=== PATIENT | male | born 1980 ===

== ENCOUNTER 2017-03-06 00:52 | Emergency (ER) | payer SELFPAY ==
[~2017-03-06] VITALS: Ht 203.2 cm; Wt 91.9 kg
[2017-03-06 02:13] VITALS: Ht 203.2 cm; Wt 91.9 kg
[2017-03-06] MEDS ORDERED: KETOROLAC 30 MG INJ IV STA (03:04)
[2017-03-06] MEDS ORDERED: ONDANSETRON 4 MG INJ IV STA (03:21)
[2017-03-06] MEDS ORDERED: morphine 4 MG/ML VIAL IV STA (03:21)
[2017-03-06] MEDS ORDERED: METHYLPREDNISOLONE 125 MG INJ IV ONE (03:30)
[2017-03-06] MEDS ORDERED: CLINDAMYCIN 900 MG/D5W (PMX) 50 ML IVPB SCH (03:30)
--- NOTE | 2017-03-06 03:34 | ERD ---
ER Documentation Chief Complaint Chief Complaint R jaw pain going to the R ear x 2 days,hard for him to swallow,not Neuro HPI 36-year-old male presents to emergency department for complaints of right sided throat pain radiating to the right jaw and right ear area that has been going on for 2 days, is hard for him to swallow because of the pain describes the pain as throbbing pain, 8/10 scale, as was upon swallowing. Patient was seen at another hospital, was given steroids through to help with some of the symptoms, after the medicine wore off, patient started to have the symptoms again. Patient does not have any stridor. Patient does not have any fever chills ROS All systems reviewed and are negative except as per history of present illness. Medications Home Meds Active Scripts Ibuprofen* (Motrin*) 600 Mg Tab, 600 MG PO Q6H Y for PAIN AND OR ELEVATED TEMP, #30 TAB Prov:MASSIMO MAI NP 03/06/17 Prednisone* (Prednisone*) 50 Mg Tablet, 50 MG PO DAILY for 5 Days, TAB Prov:MASSIMO MAI NP 03/06/17 Acetaminophen-Codeine* (Tylenol-Codeine* Liq) [id number] Elix, 10 ML PO Q6H Y for PAIN, #8 OZ Prov:MASSIMO MAI NP 03/06/17 Clindamycin Hcl* (Clindamycin Hcl*) 300 Mg Capsule, 300 MG PO TID for 10 Days, CAP Prov:MASSIMO MAI NP 03/06/17 Reported Medications [none] Unknown Strength No Conflict Check 03/06/17 Allergies Allergies: Coded Allergies: No Known Allergy (Unverified , 03/06/17) PMhx/Soc Medical and Surgical Hx: pt denies Medical Hx, pt denies Surgical Hx FmHx Family History: No coronary disease, No diabetes, No other Physical Exam Vitals Vital Signs Date Time Temp Pulse Resp B/P Pulse Ox O2 Delivery O2 Flow Rate FiO2 03/06/17 02:13 99.2 72 18 154/98 100 Physical Exam GENERAL: The patient is well developed and appropriate for usual state of health, in no apparent distress. HEENT: Atraumatic. Ears: Normal tympanic membrane, no erythema or bulging. No ear canal swelling. No ear discharge. Nose: normal nasal turbinates, no erythema or swelling. Normal nasal discharge. Throat: oropharynx erythematous with the right tonsillar swelling, mild tenderness on palpation of the right peritonsillar area, mild swelling noted, no obstruction noted. No lymphadenopathy. CHEST: Clear to auscultation bilaterally. There are no rales, wheezes or rhonchi. HEART: Regular rate and rhythm. No murmurs, clicks, rubs or gallops. No S3 or S4. ABDOMEN: Soft, nontender and nondistended. Good bowel sounds. No rebound or guarding. No gross peritonitis. No gross organomegaly or masses. No Rivera sign or McBurney point tenderness. BACK: No midline or flank tenderness. EXTREMITIES: Equal pulses bilaterally. There is no peripheral clubbing, cyanosis or edema. No focal swelling or erythema. Full range of motion. Grossly neurovascularly intact. NEURO: Alert and oriented. Cranial nerves 2-12 intact. Motor strength in all 4 extremities with 5/5 strength. Sensation grossly intact. Normal speech and gait. SKIN: There is no apparent rash or petechia. The skin is warm and dry. HEMATOLOGIC AND LYMPHATIC: There is no evidence of excessive bruising or lymphedema. No gross cervical, axillary, or inguinal lymphadenopathy. Results 24 hrs Current Medications Medications (Trade) Dose Ordered Sig/Ama Route PRN Reason Start Time Stop Time Status Last Admin Dose Admin Clindamycin HCl/ Dextrose (Cleocin 900 Mg/ D5W (Pmx)) 50 ml @ 50 mls/hr ONCE IVPB 03/06/17 03:30 03/06/17 04:29 DC 03/06/17 03:28 Ketorolac Tromethamine (Toradol) 30 mg ONCE STAT IV 03/06/17 03:04 03/06/17 03:05 DC Methylprednisolone Sodium Succinate (Solu-Medrol) 125 mg ONCE ONCE IV 03/06/17 03:30 03/06/17 03:31 DC 03/06/17 03:27 Morphine Sulfate (morphine) 4 mg ONCE STAT IV 03/06/17 03:21 03/06/17 03:22 DC 03/06/17 03:31 Ondansetron HCl (Zofran Inj) 4 mg ONCE STAT IV 03/06/17 03:21 03/06/17 03:22 DC 03/06/17 03:31 IV clindamycin, pain medications morphine Zofran Solu-Medrol was given here in the emergency department, tolerated medication well. Procedures/MDM Medical decision making: Patient symptoms is likely consistent with acute bacterial pharyngitis, most likely strep throat can be early peritonsillar abscess. Low suspicion for peritonsillar abscess, no symptoms of epiglottitis, laryngitis. No oral airway obstruction noted. No symptoms of sepsis at this time. Patient appears well and is hemodynamically stable. Patient was given for clindamycin Tylenol with codeine, and prednisone is advised to follow-up with primary care doctor in 1-2 days for reevaluation of symptoms. Patient is advised to do salt water gargles. Patient is advised to return to emergency department for worsening symptoms. Disposition: Home. Stable. Disclaimer: Inadvertent spelling and grammatical errors are likely due to EHR/ dictation software use and do not reflect on the overall quality of patient care. Also, please note that the electronic time recorded on this note does not necessarily reflect the actual time of the patient encounter. Departure Diagnosis: Primary Impression: Acute bacterial pharyngitis Condition: Stable Patient Instructions: Pharyngitis, Strep (Presumed) Additional Instructions: Patient was given for clindamycin Tylenol with codeine, and prednisone is advised to follow-up with primary care doctor in 1-2 days for reevaluation of symptoms. Patient is advised to do salt water gargles. Patient is advised to return to emergency department for worsening symptoms. MASSIMO MAI NP Mar 06, 2017 03:34
[2017-03-06] MEDS ORDERED: UDTYLC PO (03:35)
[2017-03-06] MEDS ORDERED: PRED50TA PO (03:35)
[2017-03-06] MEDS ORDERED: IBUP-1542 PO (03:35)
[2017-03-06] MEDS ORDERED: CLIN-73 PO (03:35)
[2017-03-06 04:00] VITALS: BP 111/67; PULSE 62; RESP 18; TEMP 98.6
== END 2017-03-06 04:05 | disposition home or self-care (01) ==
LOC: FTE 00:52
DX: J02.9 Acute pharyngitis, unspecified (principal)
CPT/HCPCS: 96374; 96375; 99284; J1885; J2270; J2405; J2930